=== PATIENT | male | born 1945 | race African-American/Black ===

== ENCOUNTER 2016-07-22 12:59 | Emergency (ER) | payer OTHER, BC ==
[2016-07-22 13:11] VITALS: BP 128/77; PULSE 55; TEMP 98; BMI 31.0
[2016-07-22] MEDS ORDERED: NAPROXEN 500 MG TABLET (FP) PO ONE (13:28)
[2016-07-22] MEDS ORDERED: NAPROXEN 500 MG TABLET (FP) ONE (13:33)
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
== END 2016-07-22 14:03 | disposition home or self-care (01) ==
LOC: JERFT 12:59
DX: S13.4XXA Sprain of ligaments of cervical spine, initial encounter (principal); V43.52XA Car driver injured in collision with other type car in traffic accident, initial encounter; Y92.414 Local residential or business street as the place of occurrence of the external cause; Y93.89 Activity, other specified; I10 Essential (primary) hypertension; E11.9 Type 2 diabetes mellitus without complications; Z79.84 Long term (current) use of oral hypoglycemic drugs; E78.00 Pure hypercholesterolemia, unspecified
CPT/HCPCS: 72050-TC; 99281-25

== ENCOUNTER 2020-04-11 18:07 | Inpatient (IN) | payer OTHER, BC ==
[2020-04-11] MEDS ORDERED: SODIUM CHLORIDE 1,000 ML IV STA (20:18)
[2020-04-11] MEDS ORDERED: INSULIN REGULAR HUMAN 100 UNITS/ML *VIAL IVPUSH ONE ×2 (20:45→22:42)
[2020-04-11 21:45] LABS: BASO % 1.1 % (0-2.0); EOS % 8.1 % (0-4.5); HEMATOCRIT 38.8 % (35.4-49); HEMOGLOBIN 13.2 GM/dL (11.7-16.9); LYMPH % 42.4 % (8-40); MCH 32.4 pg (25.7-33.7); MCHC 33.9 g/dl (32.0-35.9); MEAN CELL VOLUME 95.7 fl (80-96); MONO % 8.6 % (3.8-10.2); NEUT % 39.8 % (42.8-82.8); RBC 4.06 M/mm3 (4.00-5.60); RDW 11.9 % (11.9-15.9); WHITE BLOOD COUNT 5.4 K/mm3 (4.0-10.0)
[2020-04-11 22:03] LABS: PLATELET COUNT 167 K/MM3 (134-434); PLATELET ESTIMATE ADEQUATE
[2020-04-11 22:12] LABS: ALBUMIN 3.5 g/dl (3.4-5.0); BLOOD UREA NITROGEN 29.6 mg/dL (7-18)
[2020-04-11 22:17] LABS: BILIRUBIN,TOTAL 0.4 mg/dL (0.2-1); TOT PROT 7.7 g/dl (6.4-8.2)
[2020-04-12] MEDS: SODIUM CHLORIDE 1,000 ML IV SCH ×2 (02:39→17:18)
[2020-04-12] MEDS ORDERED: HEPARIN NA (PORCINE) 5,000 UNITS/ML 1ML VIAL ONE (06:46)
[2020-04-12] MEDS: HEPARIN NA (PORCINE) 5,000 UNITS/ML 1ML VIAL SQ SCH ×3 (06:53→21:48)
[2020-04-12] MEDS: INSULIN SLIDING SCALE (NOVOLOG) 1 VIAL SQ SCH ×4 (07:07→21:48)
[2020-04-12 09:14] LABS: URINE APPEARANCE CLEAR; URINE BILIRUBIN NEGATIVE (NEGATIVE); URINE COLOR YELLOW; URINE GLUCOSE (UA) 3+ (NEGATIVE); URINE KETONE NEGATIVE (NEGATIVE); URINE LEUK ESTERASE NEGATIVE (NEGATIVE); URINE NITRITE NEGATIVE (NEGATIVE); URINE PROTEIN NEGATIVE (NEGATIVE); URINE UROBILINOGEN 0.2 mg/dL (0.2-1.0)
[2020-04-12] MEDS ORDERED: amLODIPine BESYLATE 5 MG TABLET (FP) ONE (09:46)
[2020-04-12] MEDS ORDERED: PT OWN MED DRAWER 7, Y5N ONE (09:46)
[2020-04-12] MEDS ORDERED: ENOXAPARIN NA (PORCINE) 40 MG/0.4 ML DISP.SYRIN SQ SCH (10:00)
[2020-04-12] MEDS ORDERED: ASPIRIN 81 MG CHEWABLE TABLETS ONE (10:03)
[2020-04-12] MEDS ORDERED: ATENOLOL 25 MG TABLET (FP) ONE (10:03)
[2020-04-12] MEDS: ASPIRIN COATED 81 MG TABLET.EC PO SCH (10:06)
[2020-04-12] MEDS: ROSUVASTATIN CA 20 MG TABLET (FP) PO SCH (10:06)
[2020-04-12] MEDS: amLODIPine BESYLATE 5 MG TABLET (FP) PO SCH (10:49)
[2020-04-12] MEDS: ATENOLOL 50 MG TABLET (FP) PO SCH (10:49)
[2020-04-12] MEDS: INSULIN (LEVEMIR) 100 UNITS/ML UNITS SQ SCH ×2 (10:56→21:48)
[2020-04-12 11:49] LABS: EOS % 7.9 % (0-4.5); HEMATOCRIT 37.8 % (35.4-49); HEMOGLOBIN 12.9 GM/dL (11.7-16.9); MCHC 34.1 g/dl (32.0-35.9); MEAN PLT VOLUME 11.4 fl (7.5-11.1); MONO % 8.8 % (3.8-10.2); NEUT % 50.3 % (42.8-82.8); PLATELET COUNT 145 K/MM3 (134-434); RBC 4.02 M/mm3 (4.00-5.60); RDW 11.8 % (11.9-15.9); WHITE BLOOD COUNT 4.2 K/mm3 (4.0-10.0)
[2020-04-12 12:05] LABS: POTASSIUM 4.6 mmol/L (3.5-5.1)
[2020-04-12 12:06] LABS: BLOOD UREA NITROGEN 30.2 mg/dL (7-18); CALCIUM 8.8 mg/dL (8.5-10.1)
[2020-04-12 12:11] LABS: CREATININE 1.8 mg/dL (0.55-1.3)
[2020-04-12 12:19] VITALS: BMI 29.0
[2020-04-12] MEDS ORDERED: INSULIN (NOVOLOG) ASPART 100 UNITS/ML 10ML VIAL ONE ×2 (17:27→20:55)
[2020-04-13] MEDS: HEPARIN NA (PORCINE) 5,000 UNITS/ML 1ML VIAL SQ SCH ×3 (06:07→21:02)
[2020-04-13] MEDS: INSULIN SLIDING SCALE (NOVOLOG) 1 VIAL SQ SCH ×4 (06:08→21:03)
[2020-04-13] MEDS: ASPIRIN COATED 81 MG TABLET.EC PO SCH (09:00)
[2020-04-13] MEDS: amLODIPine BESYLATE 5 MG TABLET (FP) PO SCH (09:00)
[2020-04-13] MEDS: ATENOLOL 50 MG TABLET (FP) PO SCH (09:00)
[2020-04-13] MEDS: ROSUVASTATIN CA 20 MG TABLET (FP) PO SCH (09:01)
[2020-04-13] MEDS ORDERED: INSULIN (LEVEMIR) 100 UNITS/ML UNITS SQ SCH (10:00)
[2020-04-13] MEDS ORDERED: cefTRIAXone SODIUM 1 GM VIAL ONE (11:54)
[2020-04-13] MEDS ORDERED: DEXTROSE 5%-WATER - 50 ML IVPB ONE (11:54)
[2020-04-13] MEDS: RAMIPRIL 2.5 MG CAPSULE PO SCH (11:59)
[2020-04-13] MEDS: CEFTRIAXONE 1 GM in DEXTROSE 5%-WATER - 50 ML IVPB SCH (11:59)
[2020-04-13] MEDS: INSULIN (NOVOLOG MIX 70/30) 100 UNITS/ML MDV SQ SCH (17:54)
[2020-04-14] MEDS: INSULIN SLIDING SCALE (NOVOLOG) 1 VIAL SQ SCH (06:52)
[2020-04-14] MEDS: INSULIN (NOVOLOG MIX 70/30) 100 UNITS/ML MDV SQ SCH (06:56)
[2020-04-14] MEDS: HEPARIN NA (PORCINE) 5,000 UNITS/ML 1ML VIAL SQ SCH (06:59)
[2020-04-14] MEDS ORDERED: INSULIN (NOVOLOG) ASPART 100 UNITS/ML 10ML VIAL ONE (07:41)
[2020-04-14] MEDS ORDERED: INSULIN (NOVOLOG MIX 70/30) 100 UNITS/ML MDV SQ ONE (07:41)
[2020-04-14 09:04] LABS: BLOOD UREA NITROGEN 25.3 mg/dL (7-18); CALCIUM 8.6 mg/dL (8.5-10.1)
[2020-04-14 09:07] LABS: CREATININE 1.5 mg/dL (0.55-1.3)
[2020-04-14 09:08] LABS: BILIRUBIN,TOTAL 0.5 mg/dL (0.2-1); TOT PROT 6.1 g/dl (6.4-8.2)
[2020-04-14 09:10] LABS: ALBUMIN 2.7 g/dl (3.4-5.0)
[2020-04-14] MEDS ORDERED: cefTRIAXone SODIUM 1 GM VIAL ONE (09:14)
[2020-04-14] MEDS ORDERED: PT OWN MED DRAWER 7, Y5N ONE (09:14)
[2020-04-14] MEDS ORDERED: DEXTROSE 5%-WATER - 50 ML IVPB ONE (09:14)
[2020-04-14] MEDS: RAMIPRIL 2.5 MG CAPSULE PO SCH (09:19)
[2020-04-14] MEDS: CEFTRIAXONE 1 GM in DEXTROSE 5%-WATER - 50 ML IVPB SCH (09:20)
[2020-04-14] MEDS: amLODIPine BESYLATE 5 MG TABLET (FP) PO SCH (09:20)
[2020-04-14] MEDS: ATENOLOL 50 MG TABLET (FP) PO SCH (09:20)
[2020-04-14] MEDS: ASPIRIN COATED 81 MG TABLET.EC PO SCH (09:20)
[2020-04-14] MEDS: ROSUVASTATIN CA 20 MG TABLET (FP) PO SCH (09:20)
[2020-04-14 11:46] VITALS: BP 116/52; PULSE 68; TEMP 97.5
== END 2020-04-14 12:03 | disposition home health service (06) | DRG 638 ==
LOC: JER 18:07 → JERBED 22:41 → J8W 04-12 11:52
PROVIDERS: ADMIT Hospitalist; ATTEND Family Medicine
DX: E11.65 Type 2 diabetes mellitus with hyperglycemia (principal); N17.9 Acute kidney failure, unspecified; N39.0 Urinary tract infection, site not specified; E87.1 Hypo-osmolality and hyponatremia; I12.9 Hypertensive chronic kidney disease with stage 1 through stage 4 chronic kidney disease, or unspecified chronic kidney disease; E11.22 Type 2 diabetes mellitus with diabetic chronic kidney disease; N18.9 Chronic kidney disease, unspecified; E78.5 Hyperlipidemia, unspecified; Z79.84 Long term (current) use of oral hypoglycemic drugs; D72.10 Eosinophilia, unspecified; N20.0 Calculus of kidney; N28.1 Cyst of kidney, acquired
CPT/HCPCS: 36415; 71046-TC-FY; 76775-TC; 80048; 80053; 81003; 82010; 82550; 82553; 82565; 82962; 83036; 84484; 84540; 85025; 87077; 87086; 87186; 87804; 93005; 93010; 99285-25; C9803; J1644; U0003

== ENCOUNTER 2024-08-28 20:27 | Emergency (ER) | payer OTHER, BC ==
[2024-08-28 20:35] VITALS: BP 175/80; PULSE 62; RESP 18; TEMP 98.2; BMI 28.8
== END 2024-08-28 22:53 | disposition home or self-care (01) ==
LOC: JER 20:27
DX: S10.93XA Contusion of unspecified part of neck, initial encounter (principal); M25.562 Pain in left knee; W22.8XXA Striking against or struck by other objects, initial encounter
CPT/HCPCS: 72125-TC; 73560-TC-LT-FY; 99284-25